=== PATIENT | female | born 1990 | race Caucasian/White ===

== ENCOUNTER 2016-11-30 17:41 | Emergency (ER) | payer BC, OTHER ==
[~2016-11-30] VITALS: Ht 157.5 cm; Wt 56.8 kg
[2016-11-30] MEDS ORDERED: OMEP20TA PO (17:48)
[2016-11-30] MEDS ORDERED: RABIES VACCINE HUMAN 2.5 INTERNATIONAL UNITS/ML VIAL (90675) IM ONE (19:15)
[2016-11-30] MEDS ORDERED: RABIES IMMUNE GLOBULIN 1500 INTERNATIONAL UNITS/10 ML VIAL (90375) IM ONE (19:15)
[2016-11-30 20:14] VITALS: BP 108/62
== END 2016-11-30 20:15 | disposition home or self-care (01) ==
LOC: M ED 17:41
DX: Z20.3 Contact with and (suspected) exposure to rabies (principal); Z23 Encounter for immunization; K21.9 Gastro-esophageal reflux disease without esophagitis

== ENCOUNTER 2016-12-03 07:22 | Emergency (ER) | payer BC ==
[~2016-12-03] VITALS: Ht 157.5 cm; Wt 56.2 kg
[~2016-12-03 07:22] MED LIST: OMEP20TA PO
[2016-12-03 07:33] VITALS: BP 118/80
[2016-12-03] MEDS ORDERED: RABIES VACCINE HUMAN 2.5 INTERNATIONAL UNITS/ML VIAL (90675) IM ONE (08:45)
== END 2016-12-03 09:00 | disposition home or self-care (01) ==
LOC: M ED 07:22
DX: Z20.3 Contact with and (suspected) exposure to rabies (principal)

== ENCOUNTER 2016-12-07 16:09 | Emergency (ER) | payer BC ==
[~2016-12-07] VITALS: Ht 157.5 cm; Wt 56.9 kg
[2016-12-07 16:09] VITALS: BP 117/72
[2016-12-07] MEDS ORDERED: RABIES VACCINE HUMAN 2.5 INTERNATIONAL UNITS/ML VIAL (90675) IM ONE (16:30)
== END 2016-12-07 17:06 | disposition home or self-care (01) ==
LOC: M ED 16:09
DX: Z20.3 Contact with and (suspected) exposure to rabies (principal)

== ENCOUNTER 2016-12-14 06:28 | Emergency (ER) | payer BC ==
[~2016-12-14] VITALS: Ht 157.5 cm; Wt 57.0 kg
[2016-12-14 06:38] VITALS: BP 106/65
[2016-12-14] MEDS ORDERED: RABIES VACCINE HUMAN 2.5 INTERNATIONAL UNITS/ML VIAL (90675) IM ONE (07:00)
== END 2016-12-14 07:21 | disposition home or self-care (01) ==
LOC: M ED 06:28
DX: Z20.3 Contact with and (suspected) exposure to rabies (principal)

== ENCOUNTER → 2017-11-16 | Outpatient (REF) | payer BC | LOC: M LAB REF 10:13 | DX: R30.0 Dysuria (principal) | CPT/HCPCS: 87186 ==

== ENCOUNTER → 2018-08-15 | Outpatient (REF) | payer BC ==
[2018-08-15 14:26] LABS: HEMATOCRIT 38.9 % (36.0-47.0); HEMOGLOBIN 12.8 g/dl (12.0-15.5); MEAN CORPUSCULAR HEMOGLOBIN 28.8 pg (27.0-33.0); MEAN CORPUSCULAR HGB CONC 32.9 g/dl (32.0-36.5); MEAN CORPUSCULAR VOLUME 87.6 fl (80.0-96.0); PLATELET COUNT, AUTOMATED 272 10^3/uL (150-450); RED BLOOD COUNT 4.44 10^6/uL (4.00-5.40); WHITE BLOOD COUNT 6.7 10^3/uL (4.0-10.0)
[2018-08-15 15:22] LABS: HCG, SERUM QUANTITATIVE 26336 MIU/ML; HIV 1&2 SCREEN CENTAUR NEGATIVE (NEGATIVE); RUBELLA IgG QUALITATIVE IMMUNE (IMMUNE)
== END ==
LOC: M LAB REF 13:22
PROVIDERS: ATTEND Nurse Practitioner Women's Health
DX: O36.80X0 Pregnancy with inconclusive fetal viability, not applicable or unspecified (principal); Z32.01 Encounter for pregnancy test, result positive

== ENCOUNTER 2018-12-22 18:31 | Outpatient (CLI) | payer BC ==
[~2018-12-22] VITALS: Ht 157.5 cm; Wt 61.3 kg
[~2018-12-22 18:31] MED LIST changes: +OMEP-358 PO; -OMEP20TA PO
[2018-12-22 18:53] VITALS: BP 132/90
[2018-12-22] MEDS ORDERED: PRENTAB9 PO (19:14)
[2018-12-22 19:29] LABS: APPEARANCE, URINE CLEAR (CLEAR); BACTERIA, URINE AUTO 2+ (NEGATIVE); BILIRUBIN, URINE AUTO NEGATIVE (NEGATIVE); BLOOD, URINE BLOOD NEGATIVE (NEGATIVE); COLOR, URINE YELLOW (YELLOW); GLUCOSE, URINE (UA) AUTO NEGATIVE (NEGATIVE); KETONE, URINE AUTO NEGATIVE (NEGATIVE); LEUKOCYTE ESTERASE, URINE AUTO TRACE (NEGATIVE); MUCUS, URINE SMALL (NEGATIVE); NITRITE, URINE AUTO NEGATIVE (NEGATIVE); PROTEIN, URINE AUTO NEGATIVE (NEGATIVE); RBC, URINE AUTO 0 /HPF (0-3); SPECIFIC GRAVITY URINE AUTO 1.012 (1.002-1.035); SQUAMOUS EPITHELIAL CELL UR AU 1 /HPF (0-6); UROBILINOGEN, URINE AUTO 0.2 mg/dL (0.0-2.0); WBC, URINE AUTO 4 /HPF (0-3)
== END 2018-12-22 20:00 | disposition home or self-care (01) ==
LOC: M LDO 18:31
PROVIDERS: ATTEND Obstetrics & Gynecology
DX: O26.892 Other specified pregnancy related conditions, second trimester (principal); Z3A.25 25 weeks gestation of pregnancy; M54.5 Low back pain

== ENCOUNTER → 2019-01-05 | Outpatient (CLI) | payer BC ==
[~2019-01-05] MED LIST changes: -OMEP-358 PO; +OMEP20TA PO; +PRENTAB9 PO
[2019-01-05 10:17] LABS: HEMATOCRIT 33.8 % (36.0-47.0); HEMOGLOBIN 11.4 g/dl (12.0-15.5); MEAN CORPUSCULAR HEMOGLOBIN 29.5 pg (27.0-33.0); MEAN CORPUSCULAR HGB CONC 33.7 g/dl (32.0-36.5); MEAN CORPUSCULAR VOLUME 87.6 fl (80.0-96.0); PLATELET COUNT, AUTOMATED 227 10^3/uL (150-450); RED BLOOD COUNT 3.86 10^6/uL (4.00-5.40); WHITE BLOOD COUNT 8.4 10^3/uL (4.0-10.0)
== END ==
LOC: M LAB 08:30
PROVIDERS: ATTEND Nurse Practitioner Women's Health
DX: Z34.82 Encounter for supervision of other normal pregnancy, second trimester (principal); Z3A.00 Weeks of gestation of pregnancy not specified

== ENCOUNTER → 2019-03-10 | Outpatient (REF) | payer BC ==
[~2019-03-10] MED LIST changes: +OMEP-358 PO; -OMEP20TA PO
== END ==
LOC: M LAB REF 11:39
PROVIDERS: ATTEND Nurse Practitioner Women's Health
DX: Z36.85 Encounter for antenatal screening for Streptococcus B (principal)

== ENCOUNTER → 2020-04-22 | Outpatient (CLI) | payer BC ==
[2020-04-22 12:51] LABS: BASO # 0.1 10^3/uL (0.0-0.2); BASO % 0.9 % (0.0-1.0); EOS # 0.1 10^3/uL (0.0-0.5); EOS % 1.4 % (0.0-3.0); HEMATOCRIT 41.9 % (36.0-47.0); HEMOGLOBIN 13.7 g/dl (12.0-15.5); LYMPH # 1.8 10^3/uL (1.5-5.0); LYMPH % 27.7 % (24.0-44.0); MEAN CORPUSCULAR HEMOGLOBIN 29.1 pg (27.0-33.0); MEAN CORPUSCULAR HGB CONC 32.7 g/dl (32.0-36.5); MONO # 0.5 10^3/uL (0.0-0.8); MONO % 8.4 % (0.0-5.0); NEUTROPHILS # 3.9 10^3/uL (1.5-8.5); NEUTROPHILS % 61.3 % (36.0-66.0); PLATELET COUNT, AUTOMATED 268 10^3/uL (150-450); RED BLOOD COUNT 4.71 10^6/uL (4.00-5.40); WHITE BLOOD COUNT 6.4 10^3/uL (4.0-10.0)
[2020-04-22 13:33] LABS: ALBUMIN 4.4 GM/DL (3.2-5.2); ALT/SGPT 19 U/L (12-78); BILIRUBIN,TOTAL 0.5 MG/DL (0.2-1.0); BLOOD UREA NITROGEN 13 MG/DL (7-18); CALCIUM LEVEL 9.1 MG/DL (8.5-10.1); CARBON DIOXIDE LEVEL 28 MEQ/L (21-32); CHLORIDE LEVEL 104 MEQ/L (98-107); CREATININE FOR GFR 0.71 MG/DL (0.55-1.30); FREE T4 0.87 NG/DL (0.76-1.46); GLOMERULAR FILTRATION RATE > 60.0 (>60); GLUCOSE, FASTING 94 MG/DL (70-100); MAGNESIUM LEVEL 2.1 MG/DL (1.8-2.4); POTASSIUM SERUM 3.9 MEQ/L (3.5-5.1); SODIUM LEVEL 138 MEQ/L (136-145); TOTAL PROTEIN 7.3 GM/DL (6.4-8.2)
== END ==
LOC: M WUC 11:48
PROVIDERS: ATTEND Nurse Practitioner Family
DX: R00.0 Tachycardia, unspecified (principal)

== ENCOUNTER → 2020-06-06 | Outpatient (CLI) | payer BC | LOC: M LABSMTC 09:54 | PROVIDERS: ATTEND Pediatrics | DX: Z20.822 Contact with and (suspected) exposure to COVID-19 (principal) ==

== ENCOUNTER 2020-12-08 10:06 | Emergency (ER) | payer BC ==
[~2020-12-08] VITALS: Ht 157.5 cm; Wt 53.9 kg
[2020-12-08] MEDS ORDERED: SERT50TA29 (10:17)
[2020-12-08] MEDS ORDERED: HYDR-643 (10:17)
[2020-12-08 14:26] LABS: BASO # 0.1 10^3/uL (0.0-0.2); EOS % 0.7 % (0.0-3.0); HEMATOCRIT 41.7 % (36.0-47.0); HEMOGLOBIN 13.9 g/dl (12.0-15.5); LYMPH # 2.3 10^3/uL (1.5-5.0); LYMPH % 40.4 % (24.0-44.0); MEAN CORPUSCULAR HEMOGLOBIN 29.4 pg (27.0-33.0); MEAN CORPUSCULAR HGB CONC 33.3 g/dl (32.0-36.5); MEAN CORPUSCULAR VOLUME 88.3 fl (80.0-96.0); MONO # 0.6 10^3/uL (0.0-0.8); MONO % 10.2 % (2.0-8.0); NEUTROPHILS # 2.7 10^3/uL (1.5-8.5); NEUTROPHILS % 47.4 % (36.0-66.0); PLATELET COUNT, AUTOMATED 261 10^3/uL (150-450); RED BLOOD COUNT 4.72 10^6/uL (4.00-5.40); WHITE BLOOD COUNT 5.8 10^3/uL (4.0-10.0)
[2020-12-08 14:45] LABS: BLOOD UREA NITROGEN 12 MG/DL (7-18); CALCIUM LEVEL 9.2 MG/DL (8.5-10.1); CARBON DIOXIDE LEVEL 28 MEQ/L (21-32); CHLORIDE LEVEL 104 MEQ/L (98-107); CK-MB VALUE MASS < 1.0 NG/ML (<3.6); CPK CREATINE PHOSPHOKINASE 51 U/L (26-192); CREATININE FOR GFR 0.67 MG/DL (0.55-1.30); GLOMERULAR FILTRATION RATE > 60.0 (>60); GLUCOSE, FASTING 81 MG/DL (70-100); MB/CK RELATIVE INDEX 1.96 (< OR =4); POTASSIUM SERUM 3.7 MEQ/L (3.5-5.1); SODIUM LEVEL 136 MEQ/L (136-145); TROPONIN I < 0.02 NG/ML (< 0.10)
--- NOTE | 2020-12-08 14:52 | REP ---
INDICATION: r/o DVT LUE. COMPARISON: None. TECHNIQUE: Left upper extremity duplex venous sonography. FINDINGS: The internal jugular, axillary, brachial, basilic, and cephalic veins are anechoic and compressible in the left upper extremity. Color flow imaging is homogeneous. Spectral Doppler interrogation is unremarkable. Venous spectral Doppler waveforms are recorded in the proximal right and left subclavian veins. There is symmetric normal pulsatility and respiratory phasicity. There is no evidence of left upper extremity venous thrombosis. IMPRESSION: Negative left upper extremity duplex venous ultrasound. No evidence of venous thrombosis. <Electronically signed by Syed Lemus > 12/08/20 [id number]
--- NOTE | 2020-12-08 15:06 | REP ---
INDICATION: chest pain. COMPARISON: No comparison chest x-ray. TECHNIQUE: Two views.. FINDINGS: The lungs are well inflated and free of infiltrate. The pleural angles are sharp. The heart size is normal. Pulmonary vasculature is not increased. No significant bony abnormality is seen. IMPRESSION: Negative chest x-ray. <Electronically signed by Syed Lemus > 12/08/20 [id number]
[2020-12-08 15:52] VITALS: BP 115/75
--- NOTE | 2020-12-08 19:04 | ECGEPIP ---
[facility] - ED Test Date: 2020-12-08 Pat Name: RENAE POLLARD Department: Room: - Gender: Female [employer]: : 1990 Requested By: YAMILETH Ramos PA-C Order Number: [id number] Reading MD: Sonal Bundy Measurements Intervals [place] Rate: 75 P: 41 [place]: 158 QRS: 109 QRSD: 102 T: 44 QT: 402 QTc: 448 Interpretive Statements Normal sinus rhythm with sinus arrhythmia Rightward axis No prior Electronically Signed on 12-08-2020 19:03:49 EDT by Sonal Bundy
== END 2020-12-08 15:48 | disposition home or self-care (01) ==
LOC: M ED 10:06
DX: F41.0 Panic disorder [episodic paroxysmal anxiety] (principal); F41.1 Generalized anxiety disorder; R07.89 Other chest pain; K21.9 Gastro-esophageal reflux disease without esophagitis; Z79.899 Other long term (current) drug therapy

== ENCOUNTER → 2021-02-01 | Outpatient (CLI) | payer BC ==
[~2021-02-01] MED LIST changes: +HYDR-643; +SERT50TA29
== END ==
LOC: M LABSMTC 11:03
PROVIDERS: ATTEND Pediatrics
DX: Z20.822 Contact with and (suspected) exposure to COVID-19 (principal)